=== PATIENT | female | born 1975 | race Two or more races ===

== ENCOUNTER 2024-12-05 20:33 | Emergency (ER) | payer OTHER ==
[~2024-12-05] VITALS: Ht 170.2 cm; Wt 70.0 kg
[2024-12-05 20:44] VITALS: BP 105/62; PULSE 89; RESP 16; TEMP 98.7; O2SAT 100
--- NOTE | 2024-12-05 20:55 | ED.PDOC ---
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 Seizure Quality: Tonic-clonic Headache Quality: Throbbing Headache Location: Generalized Weakness Location: Generalized Numbness Location: Generalized Seizure Location: Generalized Onset: At rest Circumstances: Spontaneous Symptoms: None Before: Normal During: Awake After: Headache History of: None Modifying factors: Nothing Associated Signs and Symptoms: None Past Medical History PAST MEDICAL HISTORY: Depression Surgical History: Denies all surgeries Family History Family History: Unknown Social History Smoker: Non-Smoker Alcohol: Occasionally Drugs: Denies Drug Use Lives In: Home Was a procedure done? Was a procedure done?: No Differential Diagnosis (SZ) Seizure: Hyperventilation, Alcohol Withdrawl, Closed Head Injury, CVA/TIA, Drug Ingestion, Syncope, Encephalopathy CVA: CVA, Drug Overdose, Electrolyte Imbalance, Encephalopathy, TIA General Weakness: Anemia, Dehydration, Electrolyte imbalance, Encephalopathy, Hypoglycemia, Pulmonary embolus, TIA Headache: Cluster, Migraine, Closed Head Injury, CVA, Epidural Hemorrhage, Intracerebral Hemorrhage, Subarachnoid Hemorrhage, Subdural Hemorrhage, Post- Traumatic X-Ray, Labs, Meds, VS Vital Signs Date Time Temp Pulse Resp B/P (MAP) Pulse Ox O2 Delivery O2 Flow Rate FiO2 12/05/24 20:44 98.7 89 16 105/62 100 98.7 12/05/24 20:39 93 Time of 1ST Reevaluation: 09:21 Reevaluation 1ST: Unchanged Patient Education/Counseling: Diagnosis, Treatment, Need For Follow Up Family Education/Counseling: No Family Present Critical Care Note Critical Care Time?: No Stability Stability form required: No Heart Score Heart Score: Heart Score Response (Comments) Value History N/A 0 EKG N/A 0 Age N/A 0 Risk Factors N/A 0 Troponin N/A 0 Total 0 I personally scribed for JUAN J PATEL MD ([email or web address]) on 12/05/24 at 20:55. Electronically submitted by Brayden Diop ([email or web address]). I personally scribed for JUAN J PATEL MD ([email or web address]) on 12/05/24 at 21:32. Electronically submitted by Brayden Diop ([email or web address]). JUAN J PATEL MD Dec 05, 2024 20:55
--- NOTE | 2024-12-05 21:08 | ECG ---
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
== END 2024-12-05 21:38 | disposition left against medical advice (07) ==
LOC: EDBD 20:33 → ER 20:33
DX: R56.9 Unspecified convulsions (principal); Z53.21 Procedure and treatment not carried out due to patient leaving prior to being seen by health care provider
CPT/HCPCS: 93005